=== PATIENT | female | born 1990 | race African-American/Black ===

== ENCOUNTER 2017-06-09 19:17 | Emergency (ER) | payer BC, MEDICAID ==
[~2017-06-09] VITALS: Ht 162.6 cm; Wt 99.8 kg
[~2017-06-09 19:17] MED LIST: CIPRO PO; CITRATE OF MAG296 M1; COLACE; DIFLUCAN PO; NAPROSYN500 MG PO; PHENERGAN25 MG PO; TENORMIN25 MG PO; ZOFRAN ODT4 MG PO
[2017-06-09] MEDS ORDERED: PRENATA CHEWAB1 EACH (19:25)
[2017-06-09 19:58] LABS: URINE SOURCE CLEAN CATCH
[2017-06-09 20:00] LABS: URINE APPEARANCE CLEAR; URINE BILIRUBIN NEG (NEG); URINE BLOOD TRACE-INTACT (NEG); URINE COLOR YELLOW; URINE GLUCOSE NEG (NORM); URINE KETONE 1+ (NEG); URINE LEUKOCYTE ESTERASE NEG (NEG); URINE NITRATE NEG (NEG); URINE PH 5.5 (5-8); URINE PROTEIN NEG (NEG); URINE SPECIFIC GRAVITY >=1.030 (1.003-1.035); URINE UROBILINOGEN 0.2 MG/DL (NORM)
[2017-06-09 20:02] LABS: BASOPHIL# 0.1 X10e3 (0-0.3); BASOPHIL% 0.8 % (0-2.5); DIFF IND NO; EOSINOPHIL# 0.1 X10e3 (0-0.7); EOSINOPHIL% 0.7 % (0.0-7.0); HEMATOCRIT 38.1 % (35.0-45.0); HEMOGLOBIN 12.9 gm/dL (12.0-16.0); LYMPHOCYTE# 2.1 X10e3 (1.0-3.5); LYMPHOCYTE% 19.1 % (17.0-45.0); MEAN CELL VOLUME 87.7 FL (83-96); MEAN CORPUSCULAR HEMOGLOBIN 29.7 PG (28-34); MEAN CORPUSCULAR HGB CONC 33.9 g/dL (30-36); MEAN PLATELET VOLUME 8.8 FL (6.5-11.5); MONOCYTE# 0.7 X10e3 (0-1.0); MONOCYTE% 6.6 % (3.0-12.0); NEUTROPHIL# 8.1 X10e3 (1.5-7.1); NEUTROPHIL% 72.8 % (40-75); PLATELET COUNT 211 X10e3 (140-420); RED BLOOD COUNT 4.34 X10e (3.90-5.30); RED CELL DISTRIBUTION WIDTH 13.4 % (11.0-15.5); WHITE BLOOD COUNT 11.1 X10e3 (4.0-10.5)
[2017-06-09 20:06] LABS: CULTURE INDICATED? NO; MICRO INDICATED? YES; URINE BACTERIA NEG (NEG); URINE MUCUS PRESENT; URINE SQUAMOUS EPITHELIAL CELL OCCAS /[HPF]
[2017-06-09 20:18] LABS: ALBUMIN SERUM 3.2 g/dL (3.5-5.0); BILIRUBIN,TOTAL 0.4 mg/dL (0.2-2.0); BUN/CREATININE RATIO 13.33; CALCIUM SERUM 8.6 mg/dL (8.4-10.2); CREATININE SERUM 0.6 mg/dL (0.6-1.4); GLOM FILT RATE Estimated 142.8 mL/min (>60); POTASSIUM 3.6 mmol/L (3.5-5.1); PROTEIN TOTAL SERUM 6.6 g/dL (6.0-8.3)
[2017-06-09] MEDS ORDERED: DOCUSATE SODIU100 MG PO (21:08)
== END 2017-06-09 21:14 | disposition home or self-care (01) ==
LOC: SED 19:17
PROVIDERS: Nurse Practitioner Family
DX: O99.89 Other specified diseases and conditions complicating pregnancy, childbirth and the puerperium (principal); R10.30 Lower abdominal pain, unspecified; Z3A.14 14 weeks gestation of pregnancy; Z88.6 Allergy status to analgesic agent
CPT/HCPCS: 36415; 80053; 81003; 83690; 85025; 96360; 99284